=== PATIENT | male | born 1985 | race Caucasian/White ===

== ENCOUNTER → 2023-02-16 | Outpatient (CLI) | payer OTHER, SELFPAY ==
[2023-02-16 08:51] VITALS: PULSE 102; PULSE 111; PULSE 113; PULSE 97; O2SAT 94; O2SAT 95
--- NOTE | 2023-02-17 08:24 | PCM.PSN.6M ---
PSN 6 Minute Walk Test 6 Minute Walk Test 6 Minute Walk Test: 6 Minute Walk Test PSN:6-Minute Walk Test Start: 02/16/23 08:50 Freq: Status: Active Protocol: [id number].[id number] Document 02/16/23 08:51 JR (Rec: 02/16/23 08:55 JR [id number]) 6 Minute Walk Test Date Performed 02/16/23 Time Performed 08:00 Height 6 ft 1 in Weight: 230 lb Weight in Pounds 230.[address]: Raphael Callaway Assistive device used: None Pre-test Oxygen Delivery Method Room Air Pulse Ox 94 Pulse Rate (60-100) 97 Dyspnea Umberto Scale (0-10) 0 Exertion Muberto Scale (6-20) 6 1st minute Oxygen Delivery Method Room Air Pulse Ox 94 Pulse Rate (60-100) 111 H 2nd minute Oxygen Delivery Method Room Air Pulse Ox 95 Pulse Rate (60-100) 113 H 3rd minute Oxygen Delivery Method Room Air Pulse Ox 95 Pulse Rate (60-100) 111 H 4th minute Oxygen Delivery Method Room Air Pulse Ox 95 Pulse Rate (60-100) 111 H 5th minute Oxygen Delivery Method Room Air Pulse Ox 95 Pulse Rate (60-100) 113 H 6th minute Oxygen Delivery Method Room Air Pulse Ox 95 Pulse Rate (60-100) 113 H Dyspnea Umberto Scale (0-10) 0 Exertion Umberto Scale (6-20) 11 Post-test Oxygen Delivery Method Room Air Pulse Ox 95 Pulse Rate (60-100) 102 H Full Laps Walked 18 Partial Lap, Number of Tiles Walked 20 Total Distance Walked (ft) 1082 Interpretation Interpretation: The patient ambulated 1082 feet over the course of 6 minutes beginning on room air without assistive devices. Pretesting oxygen saturation was noted to be 94% on room air. With ambulation, the michelle oxygen saturation was 94%. There was no significant exertional oxygen desaturation. Recommendations Recommendations: There is no indication for the use of supplemental oxygen at this time.
== END | disposition home or self-care (01) ==
PROVIDERS: Referring Provider Internal Medicine Critical Care Medicine; Visit Provider Internal Medicine Critical Care Medicine
DX: R06.02 Shortness of breath (principal)
CPT/HCPCS: 94618

== ENCOUNTER → 2023-02-21 | Outpatient (CLI) | payer OTHER, SELFPAY ==
--- NOTE | 2023-02-21 14:38 | PFTCOMP_ITS ---
COMPLETE PULMONARY FUNCTION TEST INTERPRETATION Brief HPI: Patient is a 37-year-old male, currently under the care of myself, who presents to [facility] for complete pulmonary function tests secondary to diagnosis of dyspnea. Respiratory therapist reports good effort and reproducible results. Interpretation: Forced expiration spirometry shows no large airways obstructive ventilatory defect with an FEV1 of 94% predicted. There is no significant bronchodilator response by strict ATS criteria. Spirograms are of good quality and plateau normally. The respiratory flow volume loop shows a normal pattern. Lung volumes by body plethysmography show a normal total lung capacity at 6.76 L, 87% predicted. All other lung volumes are within normal limits. Diffusion capacity by carbon monoxide is normal at 89% predicted. The airway resistance is normal. No previous pulmonary function tests were available for review. Impression: These pulmonary function tests are within normal limits
== END | disposition home or self-care (01) ==
LOC: PSN 06:58
PROVIDERS: Referring Provider Internal Medicine Critical Care Medicine; Visit Provider Internal Medicine Critical Care Medicine
DX: R06.02 Shortness of breath (principal)
CPT/HCPCS: 94060; 94726; 94729

== ENCOUNTER → 2023-03-14 | Outpatient (CLI) | payer OTHER, SELFPAY ==
--- NOTE | 2023-03-14 09:40 | ECHOD_ITS ---
Reason For Study: SOB Procedure This was a 2D Doppler, Color Flow transthoracic echocardiogram. Exam performed in department. Left Ventricle Normal LV size. The estimated ejection fraction is 60 %. No evidence for diastolic dysfunction. No regional wall motion abnormalities noted. Right Ventricle Normal RV size. Normal systolic function. Atria Normal left atrium. Normal right atrium. No doppler evidence for ASD. Mitral Valve There is no mitral valve stenosis. Trivial mitral valve insufficiency. Tricuspid Valve There is no tricuspid stenosis. Trivial tricuspid valve insufficiency. Unable to estimate RV systolic pressure due to insufficient tricuspid regurgitant envelope. Aortic Valve Trisinus/trileaflet aortic valve. There is no aortic stenosis. No aortic valve insufficiency. Pulmonic Valve There is no pulmonic valvular stenosis. No pulmonic valve insufficiency. Great Vessels Normal aortic root. Pericardium/Pleural No pericardial effusion. MMode/2D Measurements & Calculations LVIDd: 3.9 cm IVSd: 1.1 cm Ao root diam: 3.3 cm LVIDs: 2.2 cm LVPWd: 0.93 cm RVDd: 3.7 cm FS: 42.6 % LAV(MOD-bp): 34.7 ml LVAd ap4: 29.1 cm2 LVAd ap2: 23.8 cm2 LAV(MOD-bp) Indexed: 15.5 ml/m2 LVLd ap4: 8.3 cm LVLd ap2: 8.2 cm LAV(MOD-sp2): 35.1 ml EDV(MOD-sp4): 83.6 ml EDV(MOD-sp2): 58.5 ml LAV(MOD-sp4): 31.0 ml EDV(sp4-el): 86.7 ml EDV(sp2-el): 58.5 ml LVAs ap4: 17.5 cm2 LVAs ap2: 14.2 cm2 LVLs ap4: 7.3 cm LVLs ap2: 6.8 cm ESV(MOD-sp4): 34.6 ml ESV(MOD-sp2): 25.4 ml ESV(sp4-el): 35.7 ml ESV(sp2-el): 25.2 ml EF(MOD-sp4): 58.6 % EF(MOD-sp2): 56.5 % EF(sp4-el): 58.8 % SV(MOD-sp4): 49.0 ml SV(MOD-sp2): 33.0 ml SV(sp4-el): 51.0 ml LA dimension(2D): 2.7 cm LA A4 area: 13.0 cm2 RA A4 area: 11.3 cm2 TAPSE: 1.9 cm Time Measurements MV dec time: 0.20 sec Doppler Measurements & Calculations MV E max harley: 64.2 cm/sec Lat Peak E' Harley: 9.9 cm/sec Med Peak E' Harley: 7.9 cm/sec MV A max harley: 71.2 cm/sec E/E' lat: 6.5 E/E' med: 8.1 MV E/A: 0.90 MV dec slope: 316.9 cm/sec2 Ao V2 max: 104.5 cm/sec LV V1 max: 94.2 cm/sec Ao max P.4 mmHg LV V1 max P.6 mmHg LV V1 mean P.7 mmHg LV V1 mean: 60.9 cm/sec LV V1 VTI: 18.5 cm PA V2 max: 84.0 cm/sec PA V2 mean: 55.4 cm/sec ECHO/Echo Complete Interpretation Summary The estimated ejection fraction is 60 %. No evidence for diastolic dysfunction. Trivial mitral valve insufficiency. Ordering Physician: Raphael Callaway Referring Physician: Raphael Callaway Performed By: Fabiola Flynn RDCS
== END | disposition home or self-care (01) ==
LOC: CVS 09:40
PROVIDERS: Referring Provider Internal Medicine Critical Care Medicine; Visit Provider Internal Medicine Critical Care Medicine
DX: R06.02 Shortness of breath (principal)
CPT/HCPCS: 93306

== ENCOUNTER → 2023-06-09 | Outpatient (CLI) | payer OTHER, SELFPAY ==
[2023-06-09] MEDS: Methacholine Chloride 18 ml neb kit INHALATION (07:30)
--- OUTSIDE RECORDS SUMMARY | 2023-06-09 07:37 | XMS RPT_ITS | CCD ---
Author Name Unknown Address [address] [place] [address] Organization [facility] Care Team Providers Care Painting Instructor Name Role Phone TODD FUENTES Unavailable Unavailable [facility] Unavailable Unavailable YUMIKO BOYKIN Unavailable Unavailable TODD FUENTES Unavailable Unavailable TODD FUENTES (CREDIT RISK ASSOCIATE) Unavailable Unavailable Problems Problem Classification Problem Date Documented Da te Episodic/Chronic Essential hypertension (2 sources) Essential (primary) hypertension; Translations: [Essential (primary) hypertension] Onset: 07-21-2016 Chronic Unclassified (1 source) Unknown / UNK(Unknown) Onset: 10-23-2017 Results Test Name Value Interpretation Reference Range Facil ity Encounters Encounter Date Encounter Type Care Provider Facility Start: 10-25-2018 Patient encounter YUMIKO Zeng lity:[facility] Start: 11-02-2017 End: 11-02-2017 Patient encounter TODD (AMARI) GINA [facility] Start: 10-23-2017 End: 10-23-2017 Patient encounter TODD FUENTES Facility:[facility] Summary Purpose Family History No Family History Records FoundNo Family History Records FoundNo Family History Records Found Advance Directives No Advanced Directives Records FoundNo Advanced Directives Records FoundNo Advanced Directives Records Found Additional Source Comments (unrecognized sect ion and content) No Status Records FoundNo Status Records FoundNo Status Records Found INFORMATION SOURCE (unrecogn ized section and content) DATE CREATED AUTHOR AUTHOR'S ORGANIZ ATION 11/13/2017 [facility] DATE CREATED AUTHOR AUTHOR'S ORGANIZ ATION 10/25/2018 [facility] FOR RECORDS PERTAINING TO PATIENTS WHO ARE OR HAVE BEEN ENROLLED IN A CHEMICAL DEPENDENCY/SUBSTANCEABUSE PROGRAM, SOME INFORMATION MAY BE OMITTED. This clinical summary was aggregated from multiple sources. Caution should be exercised in using it in the provision of clinical care. This summary normalizes information from multiple sources, and as a consequence, information in this document may materially change the coding, format and clinical context of patient data. In addition, data may be omitted in some cases. CLINICAL DECISIONS SHOULD BE BASED ON THE PRIMARY CLINICAL RECORDS. [facility] [employer] [facility]. provides no warranty or guarantee of the accuracy or completeness of information in this document.
== END | disposition home or self-care (01) ==
PROVIDERS: Referring Provider Internal Medicine Critical Care Medicine; Visit Provider Internal Medicine Critical Care Medicine
DX: R06.02 Shortness of breath (principal)
CPT/HCPCS: 94070; 95070

== ENCOUNTER → 2023-07-25 | Outpatient (CLI) | payer OTHER, SELFPAY ==
[2023-07-25 08:39] LABS: Absolute Lymphocyte Count 1.34 X10^3/uL (0.83-4.51); Absolute Neutrophil Count 3.1 X10^3/uL (2.0-7.7); Basophil# 0.03 X10^3/uL; Basophil% 0.6 % (0-1); Eosinophil# 0.07 X10^3/uL; Eosinophils% 1.4 % (0-5); Hematocrit 48.2 % (40-54); Hemoglobin 16.6 g/dL (13.0-16.5); Lymphocyte # 1.34 X10^3/ul (0.83-4.51); Mean Corp Hgb Conc 34.4 g/dL (32-36); Mean Corpuscular Hgb 31.4 pg (27.0-32.0); Mean Corpuscular Volume 91.3 fL (80-94); Mean Platelet Vol. 9.8 fl (6.2-12.0); Monocyte# 0.45 X10^3/uL; Monocyte% 9.1 % (0-10); NRBC Flagged by Analyzer 0 % (0-5); Neutrophil # 3.07 X10^3/uL (2.7-7.7); Neutrophil % 61.7 % (47-70); Platelet Count 221 K/mm3 (150-450); RBC Distribution Width CV 12.5 % (11.6-14.6); RBC Distribution Width SD 42.1 fl (35.1-43.9); Red Blood Count 5.28 M/mm3 (4.6-6.2)
[2023-07-30 09:07] LABS: Aspirgillus flavus Negative (Neg:<1:1); Aspirgillus fumigatus Negative (Neg:<1:1); Aspirgillus niger Negative (Neg:<1:1); Cytoplasmic Ab (C-ANCA) <1:20 titer (Neg:<1:20); Immunoglobulin E 9 IU/mL (6-495); Perinuclear Ab (P-ANCA) <1:20 titer (Neg:<1:20)
[2023-07-31 09:08] LABS: Alternaria alternata <0.10 kU/L (Class 0); Bermuda Grass <0.10 kU/L (Class 0); Bluegrass, Kentucky <0.10 kU/L (Class 0); Cat Hair/Dander, Standard <0.10 kU/L (Class 0); D farinae Mite 0.38 kU/L (Class I); D pteronyssinus 0.32 kU/L (Class I); Dog Epithelia <0.10 kU/L (Class 0); Elm, American White <0.10 kU/L (Class 0); Mouse Urine <0.10 kU/L (Class 0); Oak, White <0.10 kU/L (Class 0); Plantain, English <0.10 kU/L (Class 0); Ragweed, Short/Common <0.10 kU/L (Class 0)
== END | disposition home or self-care (01) ==
PROVIDERS: Referring Provider Nurse Practitioner Acute Care; Visit Provider Nurse Practitioner Acute Care
DX: J30.9 Allergic rhinitis, unspecified (principal)
CPT/HCPCS: 36415; 82785; 85025; 86003; 86256; 86606